=== PATIENT | male | born 1965 | race American Indian/Alaskan Native ===

== ENCOUNTER 2019-01-04 10:33 | Day surgery (SDC) | payer OTHER ==
--- NOTE | 2019-01-04 08:43 | Anesthesia Consultation ---
Anesthesia Consult and Med Hx Date of service: 01/04/19 - Airway Anesthetic Teeth Evaluation: Chipped ROM Head & Neck: Adequate Mental/Hyoid Distance: Adequate Mallampati Class: Class I Intubation Access Assessment: Good - Pulmonary Exam CTA: Yes - Cardiac Exam Cardiac Exam: RRR - Pre-Operative Health Status ASA Pre-Surgery Classification: ASA2 Proposed Anesthetic Plan: MAC - Cardiovascular System Hx Hypertension: Yes
--- NOTE | 2019-01-04 08:44 | Anesthesia Day of Surgery ---
Anesthesia Day of Surgery - Day of Surgery Patient Examined: Yes Patient H&P Reviewed: Yes Patient is NPO: Yes Beta Blockers: No Cardiac Clearance: No Pulmonary Clearance: No
[~2019-01-04 10:33] MED LIST: NACL 0.9% 1000 ML 1,000 ML IV SCH
[2019-01-04] MEDS ORDERED: WATER FOR IRRIG STERILE IR ONE (13:10)
[2019-01-04] MEDS ORDERED: DIPRIVAN 10 MG/ML IV ONE ×2 (13:36)
--- NOTE | 2019-01-04 14:12 | Operative Report ---
Operative Report Operative Report: Date of procedure: 01/04/2019 Procedure: Colonoscopy with Snare polypectomy, Multiple Hot Biopsy Polypecto mies, Ablation of rectal polyps and submucosal injection. Attending physician: Ha Hooper M.D. Minute Clerk: Ha Hooper M.D. Indication: Patient is a 53-year-old male who presents for screening colonoscopy. Patient has a history of constipation . This colonoscopy serves to evaluate patient so that treatment may be directed based on the findings. Consent: Informed consent was obtained after advising the patient and family regarding nature of this procedure, its indications, potential benefits as well as possible complications including but not limited to bleeding perforation and adverse reaction to medication, infection as well as other cardiopulmonary complications. An informed written and verbal consent was then obtained after due opportunity was provided for questions and answers. Monitoring: Patient was monitored continuously with pulse oximetry and electrocardiographic recordings as well as blood pressure recordings. Vital signs remained stable throughout this procedure with no untoward events. Preoperative assessment: Patient was assessed immediately prior to this procedure for capacity to tolerate monitored anesthesia care and moderate sedation as well as general anesthesia. Patient's ASA classification is 2, Mallampati class is 2, Hyomental distance is 3. Instrument: [employer] video colonoscope. Medications: Propofol given intravenously in divided doses. For details please refer to anesthesia records. Description of procedure: Patient was placed in the left lateral decubitus position after achieving sedation, a digital rectal examination was performed following which the colonoscope was introduced into the anal verge and advanced to the cecum which was identified by the cecal valve, the appendiceal orifice, as well as by the cecal strap and direct transillumination. The colonoscope was subsequently withdrawn with careful inspection of all mucosal surfaces. Patient tolerated this procedure well and was subsequently taken to the recovery room. The following findings were noted. Findings: There was scattered retained thick liquid stool seen in sections of the colon which was fairly easily irrigated. The cecum otherwise was normal. The ascending colon was normal. The transverse colon was normal. Descending colon was normal. In the sigmoid colon, patient had a semi-pedunculated 8 mm to 1 cm polyp. This was further elevated with submucosal injection of saline and then removed completely by snare electrocautery and retrieved. There were 2 adjoining diminutive polyps that were removed by hot biopsy polypectomy and retrieved. In the rectum, patient had multiple diminutive polyps that were removed by hot biopsy polypectomy or ablation. These again were retrieved. On the retroflex view of the anal verge, patient had internal hemorrhoids. Impression: Sigmoid colon polyp status post snare polypectomy and submucosal injection. Sigmoid colon colon polyps status post hot biopsy polypectomy . Rectal polyps, status post hot biopsy polypectomy and ablation. Internal hemorrhoids. Retained stool. Plan: Follow pathology report. High-fiber diet. Consider repeat colonoscopy in 3 years due to retained stool and multiple colon polyps.
--- NOTE | 2019-01-04 14:12 | Discharge Summary ---
Short Stay Discharge Plan Activity: advance as tolerated Weight Bearing Status: Weight Bear as Tolerated Diet: regular Follow up with: [facility] [Primary Care Provider] - 7 Days
[2019-01-04 15:10] VITALS: BP 100/58
== END 2019-01-04 10:34 | disposition home or self-care (01) ==
LOC: GIO 10:33
PROVIDERS: ATTEND Internal Medicine Gastroenterology
DX: D12.5 Benign neoplasm of sigmoid colon (principal); K64.8 Other hemorrhoids; K62.1 Rectal polyp; I10 Essential (primary) hypertension; Z79.899 Other long term (current) drug therapy
CPT/HCPCS: 45381; 45384; 45385; 88305; J2704; J7030